=== PATIENT | female | born 1980 | race Caucasian/White ===

== ENCOUNTER 2022-01-06 04:25 | Emergency (ER) | payer SELFPAY ==
[~2022-01-06] VITALS: Ht 165.1 cm; Wt 73.9 kg
[2022-01-06 04:38] VITALS: BP 125/82
--- NOTE | 2022-01-06 04:43 | NUR ---
PT AMB TO BED 02
[2022-01-06] MEDS ORDERED: ONDANSETRON 4 MG/2 ML VIAL IVP ONE (04:45)
[2022-01-06] MEDS ORDERED: MORPHINE SULFATE 4 MG/ML SYR IVP ONE (04:45)
[2022-01-06] MEDS ORDERED: NACL 0.9% 1,000 ML IV ONE (04:45)
--- NOTE | 2022-01-06 04:50 | NUR ---
C/O GASTRITIS X 1 DAY, PT TOOK PRILOSEC WITH NO RELIF. PMH: DENIES MEDS: OMEPRAZOLE, PRILOSEC
--- NOTE | 2022-01-06 05:00 | NUR ---
IV ESTABLISHED, LABS DRAWN AND SENT TO LAB
[2022-01-06 05:32] LABS: ALBUMIN 3.8 g/dL (3.4-5.0); ANION GAP 12.9 (8-16); CARBON DIOXIDE 24.8 mmol/L (21-32); CREATININE 0.7 mg/dL (0.6-1.3); POTASSIUM 3.7 mmol/L (3.5-5.1); TOTAL BILIRUBIN 0.2 mg/dL (0.0-1.0)
--- NOTE | 2022-01-06 05:36 | NUR ---
US AT BEDSIDE
[2022-01-06 05:46] LABS: BASOPHILS # (AUTO) 0.1 K/uL (0.00-0.22); BASOPHILS % (AUTO) 0.5 % (0.0-2.0); EOSINOPHILS # (AUTO) 0.3 K/uL (0-0.4); EOSINOPHILS % (AUTO) 2.5 % (0.0-4.0); HEMATOCRIT 34.1 % (36-48); HEMOGLOBIN 10.7 g/dL (12.0-16.0); LYMPHOCYTES # (AUTO) 3.3 K/uL (2.5-16.5); LYMPHOCYTES % (AUTO) 29.9 % (20.5-51.1); MEAN CORPUSCULAR HEMOGLOBIN 23 pg (27-31); MEAN CORPUSCULAR HGB CONC 31 g/dL (33-37); MEAN CORPUSCULAR VOLUME 74.8 fL (80-94); MONOCYTES # (AUTO) 0.9 K/uL (0.8-1.0); MONOCYTES % (AUTO) 7.8 % (1.7-9.3); NEUTROPHILS # (AUTO) 6.5 K/uL (1.8-7.7); NEUTROPHILS % (AUTO) 59.3 % (42.2-75.2); PLATELET COUNT (AUTO) 291 K/uL (140-450); RED BLOOD CELL COUNT(AUTO) 4.56 MIL/uL (4.20-5.40); RED CELL DISTRIBUTION WIDTH 17.1 % (11.6-13.7)
[2022-01-06 05:49] LABS: APPEARANCE,URINE CLEAR (CLEAR); BILIRUBIN,URINE NEGATIVE (NEGATIVE); BLOOD, URINE NEGATIVE (NEGATIVE); COLOR,URINE YELLOW (YELLOW); LEUKOCYTE ESTERASE ,URINE NEGATIVE (NEGATIVE); NITRITE, URINE NEGATIVE (NEGATIVE); UGLUCOSE NEGATIVE (NEGATIVE)
[2022-01-06 05:58] LABS: RBC,URINE 0-5 /HPF (0-5); WBC,URINE 0-5 /HPF (0-5)
--- NOTE | 2022-01-06 06:55 | NUR ---
MOVED TO BED 5
--- NOTE | 2022-01-06 07:30 | NUR ---
REPORT RECEIVED FROM YIFAN TEJADA. ASSUMED CARE AT THIS TIME
--- NOTE | 2022-01-06 07:45 | NUR ---
PT AT REST AND SLEEPING SUPINE POSITION. NO VISIBLE DISTRESS. RESPIRATIONS EVEN AND UNLABORED. BED LOCKED AT LOWEST POSITION, BED RAILS UP X2.
[2022-01-06] MEDS ORDERED: ALUM355S59 PO (10:20)
[2022-01-06] MEDS ORDERED: FAMO-90 PO (10:20)
[2022-01-06 10:33] VITALS: BP 128/85
--- NOTE | 2022-01-06 10:33 | NUR ---
Patient discharged with v/s stable. Written and verbal after care instructions FOR GASTRITIS given and explained. Patient alert, oriented and verbalized understanding of instructions. Ambulatory with steady gait. All questions addressed prior to discharge. ID band removed. Patient advised to follow up with PMD. Rx of MAALOX ADVANCED SUSPENSION given. Opportunity to ask questions provided and answered.
--- NOTE | 2022-01-06 10:34 | NUR ---
Chart checked and completed. The patient's care was reviewed and supervised by Ella Christina RN.
== END 2022-01-06 10:33 | disposition home or self-care (01) ==
LOC: MED 04:25
DX: K29.70 Gastritis, unspecified, without bleeding (principal); Z79.899 Other long term (current) drug therapy; Z98.890 Other specified postprocedural states
CPT/HCPCS: 36415; 76705; 80053; 81001; 82150; 83690; 85025; 87086; 96361; 96374; 96375; 99284; J2270; J2405; J7030; Q0092